=== PATIENT | male | born 1990 | race Caucasian/White ===

== ENCOUNTER → 2018-08-06 | Outpatient (CLI) | payer BC ==
[2018-08-06 15:46] LABS: HCT 44.8 % (39.0-53.0); HGB 14.4 gm/dL (13.0-17.5); MCH 27.6 pg (25.0-35.0); MCHC 32.2 g/dL (31.0-37.0); MCV 85.8 fL (80.0-100.0); Mean Platelet Volume 6.8; Platelet Count 281 k/uL (150-450); RBC 5.22 m/uL (4.30-5.90); RDW 13.2 % (11.5-15.5); WBC 6.3 k/uL (3.8-10.6)
[2018-08-06 20:43] LABS: Albumin 4.8 g/dL (3.80-4.90); Albumin/Globulin Ratio 2.18 (1.20-2.10); Anion Gap 8.4 mmol/L (4.00-12.00); Calcium 9.5 mg/dL (8.7-10.3); Carbon Dioxide 27.6 mmol/L (21.6-31.8); Globulin 2.2 g/dL (1.6-3.3); Potassium 4.7 mmol/L (3.5-5.5); Total Bilirubin 0.6 mg/dL (0.2-1.2)
[2018-08-06 20:48] LABS: T4, Free (Free Thyroxine) 1.3 ng/dL (0.80-1.80)
[2018-08-06 21:19] LABS: ACTH 16.2 pg/mL (0.00-45.99)
== END | disposition home or self-care (01) ==
LOC: LABWHC1 14:48
PROVIDERS: ATTEND Internal Medicine Endocrinology, Diabetes & Metabolism
DX: R53.83 Other fatigue (principal)
CPT/HCPCS: 36415; 80053; 82024; 82533; 82607; 84146; 84403; 84439; 84443; 84480; 85027

== ENCOUNTER → 2018-08-12 | Outpatient (CLI) | payer BC | LOC: LABWHC1 10:52 | PROVIDERS: ATTEND Internal Medicine Endocrinology, Diabetes & Metabolism | DX: R53.83 Other fatigue (principal); R68.82 Decreased libido; R63.5 Abnormal weight gain | CPT/HCPCS: 36415; 83001; 83002; 84403 ==

== ENCOUNTER → 2018-09-25 | Outpatient (CLI) | payer SELFPAY | LOC: LABWHC1 12:26 | PROVIDERS: ATTEND Internal Medicine Endocrinology, Diabetes & Metabolism | DX: E29.1 Testicular hypofunction (principal) | CPT/HCPCS: 36415; 84403 ==